=== PATIENT | female | born 1990 | race Caucasian/White ===

== ENCOUNTER 2017-04-07 19:07 | Emergency (ER) | payer OTHER, SELFPAY ==
--- NOTE | 2017-04-07 19:37 | RAD ---
RIGHT THUMB THREE VIEWS: HISTORY: A 26-year-old female with right thumb pain after a child bit her thumb and patient fell and hit her head. FINDINGS/IMPRESSION: No fracture, dislocation, or other significant acute osseous abnormality. No evidence for foreign b dominic. POS: [facility]
--- NOTE | 2017-04-07 19:45 | CT ---
BRAIN CT WITHOUT IV CONTRAST: HISTORY: A 26-year-old female with loss of consciousness, headache, nausea, and numbness of the distal portio n of her right thumb following a fall hitting her head. FINDINGS: No focal mass or midline shift. No intra- or extraaxial hemorrhage. Sinuses and mastoids are clear . IMPRESSION: No acute intracranial process. No mass or bleed. POS: [facility]
== END 2017-04-07 19:44 | disposition home or self-care (01) ==
LOC: SCSER 19:07
DX: S09.90XA Unspecified injury of head, initial encounter (principal); S60.011A Contusion of right thumb without damage to nail, initial encounter; S61.051A Open bite of right thumb without damage to nail, initial encounter; F41.9 Anxiety disorder, unspecified; F32.9 Major depressive disorder, single episode, unspecified; F17.210 Nicotine dependence, cigarettes, uncomplicated; Z79.899 Other long term (current) drug therapy; W50.1XXA Accidental kick by another person, initial encounter
CPT/HCPCS: 70450

== ENCOUNTER 2018-04-17 16:32 | Emergency (ER) | payer OTHER, SELFPAY ==
[2018-04-17 18:28] LABS: Band 2 % (5-11); Eosinophils 5 % (0-10); Hemoglobin 13.7 g/dL (12.0-16.0); Lymphocytes 43 % (21-51); MDiff Complete? YES; Mean Corpuscular HGB CONC 32.5 g/dL (32.0-36.0); Mean Corpuscular Hemoglobin 29.4 pg (27.0-31.0); Mean Corpuscular Volume 90.5 fL (78.0-98.0); Mean Platelet Volume 7.4 fL (7.4-10.4); Monocytes 5 % (0-10); Neutrophil 45 % (42-75); PLT Morphology Comment Appears Adequate; Platelet Count 190 thou/uL (130-400); RBC Distribution Width 12.5 % (11.5-14.5); Red Blood Cell (RBC) Count 4.66 mill/uL (4.20-5.40); White Blood Cell (WBC) Count 9.2 thou/uL (4.8-10.8)
[2018-04-17 18:29] LABS: BHCG - Serum Negative (NEGATIVE); Pregs Control Background? CLEAR/WHITE (CLR/WHITE); Pregs Control Bar Appear? YES (CONTROL BAR)
[2018-04-17 18:34] LABS: ALT (SGPT) 30 U/L (8-55); AST (SGOT) 21 U/L (5-34); Albumin 4.3 g/dL (3.5-5.0); Alkaline Phosphatase 79 U/L (40-150); Anion Gap 15 mmol/L (10-20); BUN (Urea Nitrogen) 19 mg/dL (7.0-18.7); Bilirubin, Total 0.2 mg/dL (0.2-1.2); Calc. Creatinine Clearance 0 mL/min (70-130); Calcium 9.6 mg/dL (7.8-10.44); Carbon Dioxide 22 mmol/L (22-29); Chloride 104 mmol/L (98-107); Estimated GFR-MDRD 78; Globulin 2.9 g/dL (2.4-3.5); Glucose 92 mg/dL (70-105); Potassium 3.7 mmol/L (3.5-5.1); Protein, Total 7.2 g/dL (6.0-8.3); Sodium 137 mmol/L (136-145)
--- NOTE | 2018-04-17 18:51 | RAD ---
RIGHT ANKLE THREE VIEWS: 04/17/18 HISTORY: Ankle injury. There is a prominent calcaneal spur at the plantar fascia insertion. There is no signs of any ankle joint effusion. There is a small bony density adjacent to the tip of the medial malleolus which appea rs to represent an age in determinate avulsive injury. It is fairly corticated and may be old. I do n ot see any soft tissue swelling in this region. IMPRESSION: Possible old avulsive injury of the tip of the distal fibula. Clinical correlation as to whether the patient has any pain specifically related to this area to suggest that this would be an acute injury. POS: [facility]
--- NOTE | 2018-04-17 18:53 | CT ---
CT OF BRAIN PERFORMED WITHOUT CONTRAST ENHANCEMENT: 04/17/18 HISTORY: Headache. COMPARISON: 04/07/17 study. The ventricular and cisternal system is within normal limits. There is no signs of int racerebral hemorrhage or extra-axial fluid collections. The mastoid air cells and visualized sinuses are clear. IMPRESSION: No acute intracranial abnormalities. POS: [facility]
== END 2018-04-17 20:02 | disposition left against medical advice (07) ==
LOC: SCSER 16:32
DX: S93.401A Sprain of unspecified ligament of right ankle, initial encounter (principal); G44.89 Other headache syndrome; Z79.899 Other long term (current) drug therapy; W19.XXXA Unspecified fall, initial encounter
CPT/HCPCS: 36415; 70450; 80053; 84703; 85025